=== PATIENT | female | born 1950 | race Caucasian/White ===

== ENCOUNTER 2021-04-20 13:34 | Inpatient (IN) | payer MEDICARE, SELFPAY ==
--- NOTE | ~2021-04-20 | XR_ITS ---
XR chest 1V portable 04/20/2021 14:47 Indication: Cough and fever Procedure: AP portable chest Comparison: 10/09/2008 Findings: Heart size normal. There is dextroscoliosis of the thoracic spine. There is left basilar at electasis. No focal pneumonia, edema or effusion. There are bilateral calcified granulomas of the radha gs. Impression: 1: Left basilar atelectasis. Reviewed, dictated and finalized at location B. [employer] Impression: 1: Left basilar atelectasis.
--- NOTE | 2021-04-20 13:43 | ED.URI ---
HPI - URI/Sore Throat General Chief Complaint: Nausea/Vomiting/Diarrhea Stated Complaint: fever,aches,cough,pain Time Seen by Provider: 04/20/21 13:42 Source: patient Mode of arrival: ambulatory Limitations: no limitations History of Present Illness MD elicited complaint: fever and cough Onset (ago): week(s) (1) Consistency: constant Severity: severe Description of mucous: clear Able to tolerate fluids by mouth: Yes Context: sick contacts (Son with COVID) Associated symptoms: fever, chills, myalgias, cough and vomiting Treatments prior to arrival: none Related Data Home Medications Medication Instructions Recorded Confirmed No Home Medications 04/20/21 04/20/21 Allergies Allergy/AdvReac Type Severity Reaction Status Date / Time codeine Allergy Severe ???N/V Verified 04/20/21 15:42 Review of Systems Review of Systems: All systems reviewed & are unremarkable except as noted in HPI and below Constitutional: Constitutional: Reports chills, Reports fever(s) and Reports weakness Respiratory: Respiratory: Reports cough and Denies dyspnea Gastrointestinal: Gastrointestinal: Reports diarrhea, Reports nausea and Reports vomiting Genitourinary: Genitourinary: Denies dysuria Neurologic: Comments: No change in sense of taste or sense of smell PMFSH Past Medical History Medical History (Updated 04/20/21 @ 15:13 by Rod Lee MD) No active medical problems Surgical History Surgical History (Updated 04/20/21 @ 15:13 by Rod Lee MD) H/O inguinal hernia repair History of appendectomy S/P ORALIA-BSO Social History Social History (Updated 04/20/21 @ 15:14 by Rod Lee MD) Smoking status: Never smoker Alcohol intake: never Substance use: never Exam Const: General: no acute distress, alert and ill appearing acutely Nutritional Appearance: well nourished Orientation/consciousness: patient oriented x3 HENMT: Head: normal to inspection Ears: external ears normal General nose exam: Normal external nose present Face and sinus: normal facial exam Mouth: Yes dry mucous membranes Eyes: Conjunctivae: conjunctivae normal Pupils: Equal, round and reactive pupils present EOM: EOMs intact bilaterally Neck: Neck: normal visual inspection Resp: Auscultation: rhonchi throughout and wheezes expiratory wheezes and posterior Cardio: Rate: regular rate Rhythm: regular rhythm Heart sounds: no murmurs GI: GI Palp: Yes Soft to palpation, Yes Tenderness to palpation present (GI), No Guarding due to palpation present (GI) and No Rebound tenderness present Auscultation: normal bowel sounds Back/Spine/Pelvis: Cervical Spine: cervical ROM normal Thoracic/Lumbar Spine: thoraco-lumbar ROM normal Skin: General skin exam: normal color Rashes: no rashes Neuro: General: patient oriented x3, moves all extremities, no meningeal signs and no focal motor deficits Speech: normal speech Gait exam (Neuro): Normal gait present Extrem: General: normal to inspection and no clubbing, cyanosis or edema Psych: Appearance: grossly normal and well kempt Mental Status: mental status grossly normal Affect: normal affect Attitude: cooperative Thought content: Yes Normal thought content present Course Vital Signs Vital signs: Vital Signs Temperature 37.2 C 04/20/21 14:12 Pulse Rate 86 04/20/21 14:12 Respiratory Rate 18 04/20/21 14:12 Blood Pressure 157/85 H 04/20/21 14:12 Pulse Oximetry 94 04/20/21 14:12 Temperature 37.2 C 04/20/21 14:12 Pulse Rate 74 04/20/21 17:30 Respiratory Rate 18 04/20/21 17:30 Blood Pressure 112/95 H 04/20/21 17:30 Pulse Oximetry 93 04/20/21 17:30 MDM - URI/Sore Throat Lab Data Result diagrams: 04/20/21 14:12 04/20/21 14:12 Labs: Lab Results 04/20/21 04/20/21 04/20/21 Range/Units 13:49 14:12 14:12 WBC 6.9 (4.8-10.8) K/mm3 RBC 4.53 (4.20-5.40) M/mm3 Hgb 14.1 H (11.7-13.8) g/dL Hct 41.4
[2021-04-20 14:12] VITALS: BP 157/85; PULSE 86; RESP 18; TEMP 37.2; O2SAT 94
[2021-04-20 14:20] LABS: Hematocrit 41.4 % (35.0-42.0); Hemoglobin 14.1 g/dL (11.7-13.8); Mean Corpuscular HGB Conc 34.1 g/dL (32.0-36.0); Mean Corpuscular Hemoglobin 31.1 pg (27.0-31.0); Mean Corpuscular Volume 91.4 fL (78.0-102.0); Platelet Count Result 226 K/mm3 (150-420); Red Blood Count 4.53 M/mm3 (4.20-5.40); Red Cell Distribution Width 13.2 % (11.6-14.4); White Blood Count 6.9 K/mm3 (4.8-10.8)
[2021-04-20 14:34] LABS: D Dimer 0.43 mg/L (0.19-0.50)
[2021-04-20 14:42] LABS: Band Neutrophils Percent 3 % (0-6); Basophils Percent Manual 0 % (0-1); Eosinophils Percent Manual 0 % (1-6); Lymphocytes Absolute Manual 0.55 K/mm3 (1.1-4.5); Lymphocytes Percent Manual 8 % (18-44); Monocytes Absolute Manual 0.13 K/mm3 (0.1-0.90); Monocytes Percent Manual 2 % (3-9); Neutrophils Absolute Manual 6.21 K/mm3 (1.7-7.2); Neutrophils Percent Manual 87 % (46-73); Platelet Estimate Adequate (Adequate); Total Cells Counted 100
[2021-04-20 14:50] LABS: Alanine Aminotransferase 39 U/L (14-59); Albumin Level 3.4 g/dL (3.4-5.0); Alkaline Phosphatase 84 U/L (46-116); Anion Gap 19 mmol/L (8-16); Aspartate Amino Transferase 37 U/L (15-37); Bilirubin,Total 0.3 mg/dL (0.00-1.00); Blood Urea Nitrogen 14 mg/dL (7-18); CRP 7.8 mg/dL (0.0-0.9); Calcium 8.7 mg/dL (8.5-10.1); Carbon Dioxide 22 mmol/L (21-32); Chloride 100 mmol/L (98-108); Estimated CRCL calculation 49 ml/min; Estimated Glomerular Filt Rate > 60; Ferritin 464 ng/mL (8-252); Glucose 143 mg/dL (70-99); Magnesium 1.9 mg/dL (1.8-2.4); Osmolality Calculated 294 mOsm/kg (285-295); Potassium 3.2 mmol/L (3.5-5.1); Sodium 141 mmol/L (136-145); Total Protein 7.3 g/dL (6.4-8.2); Troponin I 11.8 ng/L (0.00-60.4)
[2021-04-20 14:55] LABS: Influenza A QL RT-PCR Negative (Negative); Influenza B QL RT-PCR Negative (Negative); SARS-CoV-2 RNA PCR Positive (Negative)
[2021-04-20] MEDS: ONDANSETRON INJ 4 MG/2 ML VIAL IV PUSH (15:46)
[2021-04-20] MEDS: SODIUM CHLORIDE 0.9% IV 1,000 ML 999 ML IV CONT (15:47)
[2021-04-20 15:57] VITALS: BP 132/79; PULSE 77; RESP 16; O2SAT 94
[2021-04-20] MEDS: BENZONATATE 100 MG CAPSULE PO (16:45)
--- NOTE | 2021-04-20 17:06 | PC.NURSE ---
Floor and registration notified of admission. Room assignment 210.
--- NOTE | 2021-04-20 17:22 | PC.NURSE ---
Mukesh Hunt updated on plan of care per patients request.
[2021-04-20 17:30] VITALS: BP 112/95; PULSE 74; RESP 18; O2SAT 93
--- NOTE | 2021-04-20 17:43 | PC.NURSE ---
Phone report given to 2nd floor, RN.
--- NOTE | 2021-04-20 17:55 | ADMGEN ---
This patient, Freddy Irby, was admitted to 2nd Floor Room 210-2. Patient/family oriented to hospital policies and general routines including ID bracelet, bed and alarms, visiting hours, pain management, procedures, bathroom and other care routines, personal items, smoking policy, room service/diet, and visiting hours. Information on how to activate the Rapid Response Team has been discussed. Discussed Covid Isolation precautions. Patient voiced understanding of same. Patient/Family are encouraged to report perceived risks to care and to ask questions if they do not understand what they are told or what they should do.
[2021-04-20 18:39] VITALS: BMI 26.2
[2021-04-20] MEDS: DEXTROSE 5%/0.45% SOD CHL 1,000 ML 125 ML IV CONT (19:09)
[2021-04-20 19:10] VITALS: PULSE 80; RESP 20; TEMP 37.4; O2SAT 93
[2021-04-20] MEDS: ALBUTEROL SULFATE (*SP) INHALER 2 PUFF INHALATION (21:25)
[2021-04-20] MEDS: DEXAMETHASONE SOD PHOS INJ 4 MG/ML VIAL IV PUSH (21:31)
[2021-04-21] VITALS: BP 126/67; PULSE 76; RESP 18; TEMP 36.4; O2SAT 94
[2021-04-21] MEDS: DEXTROSE 5%/0.45% SOD CHL 1,000 ML 125 ML IV CONT ×3 (02:56→21:01)
[2021-04-21 04:25] VITALS: BP 140/76; PULSE 92; RESP 18; TEMP 36.4; O2SAT 95
[2021-04-21 05:21] LABS: Hematocrit 38.2 % (35.0-42.0); Hemoglobin 12.6 g/dL (11.7-13.8); Mean Corpuscular Hemoglobin 30.4 pg (27.0-31.0); Mean Platelet Volume 9.9 fl (9.2-11.8); Platelet Count Result 214 K/mm3 (150-420); Red Blood Count 4.15 M/mm3 (4.20-5.40); Red Cell Distribution Width 13.1 % (11.6-14.4); White Blood Count 3.7 K/mm3 (4.8-10.8)
[2021-04-21 05:31] LABS: Anion Gap 12 mmol/L (8-16); Blood Urea Nitrogen 11 mg/dL (7-18); Carbon Dioxide 26 mmol/L (21-32); Chloride 104 mmol/L (98-108); Estimated CRCL calculation 41 ml/min; Estimated Glomerular Filt Rate 51; Glucose 221 mg/dL (70-99); Osmolality Calculated 300 mOsm/kg (285-295); Potassium 3.4 mmol/L (3.5-5.1); Sodium 142 mmol/L (136-145)
[2021-04-21] MEDS: DEXAMETHASONE SOD PHOS INJ 4 MG/ML VIAL IV PUSH ×3 (05:32→21:01)
[2021-04-21] MEDS: ALBUTEROL SULFATE (*SP) INHALER 2 PUFF INHALATION ×3 (05:33→21:00)
[2021-04-21 05:36] LABS: Band Neutrophils Percent 5 % (0-6); Basophils Percent Manual 0 % (0-1); Eosinophils Percent Manual 0 % (1-6); Lymphocytes Absolute Manual 0.51 K/mm3 (1.1-4.5); Lymphocytes Percent Manual 14 % (18-44); Monocytes Absolute Manual 0.14 K/mm3 (0.1-0.90); Monocytes Percent Manual 4 % (3-9); Neutrophils Absolute Manual 3.03 K/mm3 (1.7-7.2); Neutrophils Percent Manual 77 % (46-73); Platelet Estimate Adequate (Adequate); Total Cells Counted 100
[2021-04-21 05:37] LABS: Atypical Lymphocytes Present
[2021-04-21 08:00] VITALS: BP 127/45; PULSE 72; RESP 18; TEMP 37.2; O2SAT 97
[2021-04-21] MEDS: POTASSIUM CHLORIDE 20 MEQ TABLET 40 MEQ PO (08:20)
[2021-04-21] MEDS: BENZONATATE 100 MG CAPSULE PO ×3 (08:20→17:07)
[2021-04-21] MEDS: ACETAMINOPHEN 325 MG TABLET 650 MG PO (08:21)
--- NOTE | 2021-04-21 11:00 | PM.IMHP ---
H&P: HPI History of Present Illness Date/Time: 04/21/21 11:00 this is a 71-year-old female who presented to our emergency department with complaints nausea, vomiting, diarrhea, fatigue, body aches, and cough. Patient denies any past medical history. Patient notes that for the past week she has been experiencing the symptom she also noted that her son tested positive for Covid in 2 months her is also Covid positive. Today patient notes that her condition has much improved. She was able to keep down her liquid diet she did have one episode of diarrhea and continues to have a uncontrollable cough she has not had any nausea and vomiting. Vital signs 127/45, 72, 18, 99.0, 97% on room air, WBC 6.9, hemoglobin 9, hematocrit 41.4-26 D-dimer 0.43, sodium 141, potassium 3.2, BUN 14, creatinine 0.87, glucose 143, lactic acid 1.0, magnesium 1.9, liver function test within normal limits, troponin 11.8, CRP 7.8, Covid positive, chest x-ray Left basilar atelectasis. Patient will be admitted for Covid with a possible discharge tomorrow. Patient has not been vaccinated <PANCHO Zambrano - Last Filed: 04/21/21 13:07> Chief Complaint: Nausea vomiting diarrhea, cough Covid positive <PANCHO Zambrano - Last Filed: 04/21/21 13:07> Review of Systems Review of Systems: A 14 organ system Review of Systems was performed and pertinent positives included in the HPI, otherwise remaining ROS is negative. <PANCHO Zambrano - Last Filed: 04/21/21 13:07> [facility] Past Medical History Medical History: Medical History (Updated 04/21/21 @ 12:28 by PANCHO Zambrano) No active medical problems <PANCHO Zambrano - Last Filed: 04/21/21 13:07> Surgical History Surgical History: Surgical History (Updated 04/20/21 @ 15:13 by Rod Lee MD) H/O inguinal hernia repair History of appendectomy S/P ORALIA-BSO <PANCHO Zambrano - Last Filed: 04/21/21 13:07> Family History Family History: Family History (Updated 04/20/21 @ 18:41 by Shira Sanchez RN) Mother Acute myocardial infarction Sibling Acute myocardial infarction Sibling Diabetes mellitus <PANCHO Zambrano - Last Filed: 04/21/21 13:07> Social History Social History: Social History (Updated 04/20/21 @ 15:14 by Rod Lee MD) Smoking status: Never smoker Alcohol intake: never Substance use: never Substance use type: does not use Spiritual care concerns: No <PANCHO Zambrano - Last Filed: 04/21/21 13:07> Meds Home Medications and Allergies Home medications: Home Medications Medication Instructions Recorded Confirmed Type No Home Medications 04/20/21 04/20/21 History <PANCHO Zambrano - Last Filed: 04/21/21 13:07> Allergies/Adverse reactions: Allergies Allergy/AdvReac Type Severity Reaction Status Date / Time codeine Allergy Severe ???N/V Verified 04/20/21 15:42 <PANCHO Zambrano - Last Filed: 04/21/21 13:07> Vital Signs Vital Signs - 24 hr 04/20/21 14:12 04/20/21 15:57 04/20/21 17:30 Temperature 99 F Pulse Rate 86 77 74 Respiratory Rate 18 16 18 Blood Pressure 157/85 H 132/79 112/95 H Pulse Oximetry 94 94 93 04/20/21 19:10 04/21/21 00:00 04/21/21 04:25 Temperature 99.4 F 97.6 F 97.6 F Pulse Rate 80 76 92 Respiratory Rate 20 18 18 Blood Pressure 126/67 140/76 Pulse Oximetry 93 94 95 04/21/21 08:00 Temperature 99.0 F Pulse Rate 72 Respiratory Rate 18 Blood Pressure 127/45 L Pulse Oximetry 97 <PANCHO Zambrano - Last Filed: 04/21/21 13:07> Exam Narrative: GENERAL: This is a well-nourished, well-developed patient, in no apparent distress. HEAD: normocephalic, atraumatic. EYES: PERRL. Sclera clear/white. Vision is grossly intact. EARS: External ears normal, auditory canals clear and without drainage, TMs normal without perforation. Hearing grossly intact. NOSE: External nose normal with no obvious
[2021-04-21 15:45] VITALS: BP 144/69; PULSE 79; RESP 18; TEMP 36.4; O2SAT 95
--- NOTE | 2021-04-21 18:35 | PC.NURSE ---
Patient had diarrhea x2 in the last hour. Patient states she thinks its cause she started eating regular food again. Denies any nausea/vomiting. States she would like something to help with diarrhea. MD will be contacted.
[2021-04-21 23:40] VITALS: BP 129/74; PULSE 89; RESP 20; TEMP 36.7; O2SAT 97
[2021-04-22] MEDS: DEXTROSE 5%/0.45% SOD CHL 1,000 ML 125 ML IV CONT (04:50)
[2021-04-22 05:26] LABS: Hematocrit 41.5 % (35.0-42.0); Hemoglobin 12.5 g/dL (11.7-13.8); Mean Corpuscular HGB Conc 30.1 g/dL (32.0-36.0); Mean Corpuscular Hemoglobin 30.8 pg (27.0-31.0); Mean Corpuscular Volume 102.2 fL (78.0-102.0); Mean Platelet Volume 10.3 fl (9.2-11.8); Platelet Count Result 203 K/mm3 (150-420); Red Blood Count 4.06 M/mm3 (4.20-5.40); Red Cell Distribution Width 13.6 % (11.6-14.4); White Blood Count 14.2 K/mm3 (4.8-10.8)
[2021-04-22 05:37] LABS: Anion Gap 9 mmol/L (8-16); Blood Urea Nitrogen 12 mg/dL (7-18); CRP 2.3 mg/dL (0.0-0.9); Calcium 8.1 mg/dL (8.5-10.1); Carbon Dioxide 27 mmol/L (21-32); Chloride 106 mmol/L (98-108); Estimated CRCL calculation 46 ml/min; Estimated Glomerular Filt Rate 58; Glucose 198 mg/dL (70-99); Osmolality Calculated 299 mOsm/kg (285-295); Potassium 3.9 mmol/L (3.5-5.1); Sodium 142 mmol/L (136-145)
[2021-04-22] MEDS: DEXAMETHASONE SOD PHOS INJ 4 MG/ML VIAL IV PUSH (06:04)
[2021-04-22] MEDS: ALBUTEROL SULFATE (*SP) INHALER 2 PUFF INHALATION ×2 (06:06→13:38)
[2021-04-22 08:00] VITALS: BP 133/95; PULSE 80; RESP 16; TEMP 36.8; O2SAT 97
--- NOTE | 2021-04-22 09:06 | PM.DS ---
DS: Admitting Diagnosis Discharge Date 04/22/2021 Admitting Diagnosis covid DS: Discharge Diagnosis Discharge Diagnosis (1) COVID: Code(s): U07.1 - COVID-19 Status: Acute Assessment and Plan: Continue dexamethasone Patient is on room air sat upper 90s Patient not vaccinated educated on vaccination Discharge Dexamethasone discontinued due to patient none use of oxygen (2) Nausea & vomiting: Code(s): R11.2 - Nausea with vomiting, unspecified Status: Acute Assessment and Plan: resolved Continue Zofran (3) Diarrhea: Code(s): R19.7 - Diarrhea, unspecified Status: Acute Assessment and Plan: Continue Imodium (4) Cough: Code(s): R05.9 - Cough, unspecified Status: Acute Assessment and Plan: Continue Tessalon Betty DS: Summary Hospital Course Reason for hospitalization: covid Hospital Course: this is a 71-year-old female who presented to our emergency department with complaints nausea, vomiting, diarrhea, fatigue, body aches, and cough. Patient denies any past medical history. Patient notes that for the past week she has been experiencing the symptom she also noted that her son tested positive for Covid in 2 months her is also Covid positive. Today patient notes that her condition has much improved. Patient has not been vaccinated. Patient condition has improved since her admission she no longer is experiencing any nausea and vomiting she does have small's amounts of diarrhea and her fatigue has improved she also continues to have cough which has improved since admission. Patient agrees that she is ready for discharge. The patient denies SOB, CP, palpitation, extremity numbness, lightheadedness, dizziness, constipation, diarrhea, chills, or fever. Time Spent with Patient Time attestation: Total time spent providing and/or coordinating discharge services: Exam Narrative: GENERAL: This is a well-nourished, well-developed patient, in no apparent distress. HEAD: normocephalic, atraumatic. EYES: PERRL. Sclera clear/white. Vision is grossly intact. EARS: External ears normal, auditory canals clear and without drainage, TMs normal without perforation. Hearing grossly intact. NOSE: External nose normal with no obvious nasal discharge, nares without redness, no rhinorrhea. THROAT: Mucous membranes moist, posterior pharynx clear. NECK: Neck supple, non-tender without lymphadenopathy, masses or thyromegaly. CARDIOVASCULAR: Regular rate and rhythm without murmurs, gallops, or rubs. RESPIRATORY: GASTROINTESTINAL: Abdomen soft, non-tender, nondistended. Bowel sounds are active. No hepato-splenomegaly, or palpable masses. No guarding. SKIN: warm, intact with no suspicious lesions or rash, good texture and turgor. NEURO: awake, alert, and oriented to person, place and time. There were no obvious focal neurologic abnormalities. Steady gait EXTREMITIES: Normal range of motion. No edema. No calf tenderness. Negative Homans sign bilaterally. BACK: Nontender without deformity or crepitance. No flank tenderness. DS: Data Data Completed and Pending Labs on day of discharge: Labs from last 24 hours 04/22/21 04/22/21 05:10 05:10 WBC 14.2 H RBC 4.06 L Hgb 12.5 Hct 41.5 MCV 102.2 H MCH 30.8 MCHC 30.1 L RDW 13.6 Plt Count 203 MPV 10.3 Sodium 142 Potassium 3.9 Chloride 106 Carbon Dioxide 27 Anion Gap 9 BUN 12 Creatinine 0.94 Estim Creat Clear Calc 46 Estimated GFR 58 L Glucose 198 H Calculated Osmolality 299 H Calcium 8.1 L C-Reactive Protein 2.3 H Discharge Plan Discharge Attending physician on discharge: Sekou Fox Discharging Clinician: Chani Spicer Anticipated Discharge Date/Time: 04/22/21 08:55 Patient Disposition: Home, Self-Care Activity: as tolerated Diet: regular Discharge Instructions: Remain isolation/quarantine until 04/30/2021 means to sta
[2021-04-22] MEDS: ENOXAPARIN 30 MG/0.3 ML SYRINGE SUB-Q (09:10)
[2021-04-22] MEDS: POTASSIUM CHLORIDE 20 MEQ TABLET 40 MEQ PO (09:30)
[2021-04-22] MEDS: BENZONATATE 100 MG CAPSULE PO ×2 (10:06→13:39)
--- NOTE | 2021-04-22 13:43 | PC.NURSE ---
Pt discharged from room 210 in stable condition. Discharge instructions given. COVID quarentine instructions given. Medications reviewed. Pt verbalized understanding of all instructions. RN assisted pt to family car via WC.
--- NOTE | 2021-04-28 11:10 | PC.NURSE ---
Pt states she received and understood her discharge instructions. Pt has no other comments.
== END 2021-04-22 13:25 | disposition home or self-care (01) | DRG 179 ==
LOC: CHSED 13:42 → CHS2ND 17:09
PROVIDERS: Nurse Practitioner; Admitting Provider Emergency Medicine; Emergency Provider Emergency Medicine; Visit Provider Emergency Medicine
DX: U07.1 COVID-19 (principal); Z90.710 Acquired absence of both cervix and uterus; Z90.722 Acquired absence of ovaries, bilateral; R53.1 Weakness; R11.10 Vomiting, unspecified; R11.2 Nausea with vomiting, unspecified; R19.7 Diarrhea, unspecified
CPT/HCPCS: 36415; 71045; 80048; 80053; 82728; 83605; 83735; 84484; 85025; 85027; 85380; 86140; 87502; 96361; 96374; 96375; 99285; A9270; C9803; J1100; J1650; J2405; J7030; U0003; U0005